=== PATIENT | female | born 1960 | race Hispanic/Latino ===

== ENCOUNTER 2016-10-18 06:36 | Day surgery (SDC) | payer OTHER ==
[~2016-10-18 06:36] MED LIST: NACL 0.9% 1000 ML 1,000 ML IV SCH; VANCOMYCIN/NS 1 GM/250 ML 1 GM/250 ML BAG IV NR
[2016-10-18] MEDS ORDERED: NACL 0.9% 500 ML 500 ML IV SCH (07:30)
[2016-10-18 07:35] LABS: Hematocrit 30.1 % (30.3-42.9); Hemoglobin 9.5 gm/dl (10.1-14.3); Mean Corpuscular HGB Conc 32 % (30-34); Mean Corpuscular Volume 79 fl (79-97); Platelet Count 514 K/mm3 (140-440); Red Blood Count 3.84 M/mm3 (3.65-5.03); Red Cell Distribution Width 19.2 % (13.2-15.2); White Blood Count 10.8 K/mm3 (4.5-11.0)
[2016-10-18 07:44] LABS: Mean Corpuscular Hemoglobin 25 pg (28-32)
[2016-10-18] MEDS ORDERED: PERCOCET 5/325 PO ONE (08:00)
[2016-10-18 08:01] LABS: Anion Gap 20 mmol/L; BUN/Creatinine Ratio 24.28; Blood Urea Nitrogen 17 mg/dL (7-17); Calcium 9.1 mg/dL (8.4-10.2); Carbon Dioxide 26 mmol/L (22-30); Glucose 101 mg/dL (65-100); Potassium 3.9 mmol/L (3.6-5.0); Sodium 138 mmol/L (137-145)
[2016-10-18] MEDS ORDERED: HEPARIN/NS 5000 UNIT/500ML(CATH LAB) 1,000 ML IR ONE (08:26)
[2016-10-18] MEDS ORDERED: HEPARIN 10,000 UNITS/10 ML ONE (08:27)
[2016-10-18] MEDS ORDERED: XYLOCAINE 1%/ EPI 1:100,000 INFILTRATI ONE (08:27)
[2016-10-18] MEDS ORDERED: SUBLIMAZE ONE (08:27)
[2016-10-18 08:32] LABS: Basophils % (Manual) 0 % (0.0-1.8); Blastocytes % (Manual) 0 %; Hypochromasia 1+
[2016-10-18 08:33] LABS: Diff Status Complete; Platelet Clumps Rare; Platelet Estimate Appears Increased
[2016-10-18] MEDS ORDERED: BENADRYL ONE (09:05)
[2016-10-18] MEDS: VERSED ONE ×2 (09:15→09:22)
[2016-10-18] MEDS: SUBLIMAZE ONE ×2 (09:17→09:40)
[2016-10-18] MEDS ORDERED: DILAUDID ONE ×2 (09:22→10:20)
[2016-10-18] MEDS: DILAUDID ONE ×4 (09:29→09:53)
--- NOTE | 2016-10-18 10:06 | Short Stay Summary ---
Short Stay Documentation Date of service: 10/18/16 Narrative H&P: please see H&P on chart - History Principal diagnosis: Critical limb ischemia, RLE H&P: obtained from office - Allergies and Medications Current Medications: Allergies carboplatin Allergy (Verified 03/30/13 11:51) Swelling cisplatin Allergy (Verified 03/30/13 11:51) Swelling Penicillins Allergy (Verified 01/28/13 12:31) Unknown Home Medications Medication Instructions Recorded Confirmed Last Taken Type Hydroxychloroquine [Plaquenil] 400 mg PO DAILY 11/17/13 10/18/16 10/18/16 05:30 History 400mg Lansoprazole (Nf) [Prevacid (Nf)] 30 mg PO DAILY 11/17/13 10/18/16 10/18/16 History 30mg Campbell-3 Fatty Acids/Fish Oil [Fish 1 tab PO DAILY 11/17/13 10/18/16 10/18/16 05: 30 History Oil] 1 tab Ubidecarenone [Coq-10] 120 mg PO DAILY 11/17/13 10/18/16 10/18/16 05:30 History 120mg Aspirin [Aspirin TAB] 325 mg PO QDAY #30 tablet 01/29/14 10/18/16 10/18/16 05: 30 Rx 325mg Clopidogrel [Plavix] 75 mg PO QDAY #30 tablet 01/29/14 10/18/16 10/18/16 05:30 Rx 75mg Lisinopril [Zestril TAB] 5 mg PO QDAY #30 tablet 01/29/14 10/18/16 10/18/16 05: 30 Rx 5mg Metoprolol [Lopressor TAB] 25 mg PO BID #60 tablet 01/29/14 10/18/16 10/18/16 05 :30 Rx 25mg oxyCODONE /ACETAMINOPHEN [Percocet 2 tab PO Q6H PRN 10/18/16 10/18/16 10/18/16 07:45 History 5/325 mg] Active Medications Vancomycin HCl (Vancomycin/Ns 1 Gm/250 Ml) 1 gm in 250 mls @ 166.667 mls/hr IV PREOP NR PRN Reason: Protocol Stop: 10/18/16 23:01 Last Admin: 10/18/16 08:30 Dose: 166.667 mls/hr Sodium Chloride (Nacl 0.9% 500 Ml) 500 mls @ 50 mls/hr IV DIRECT MO Last Admin: 10/18/16 08:15 Dose: 50 mls/hr - Physical exam General appearance: mild distress (right foot pain) Lungs: Normal air movement Extremities: pulses intact (left pedal pulses intact ; right pedal pulses nonpalpable) - Brief post op/procedure progress note Date of procedure: 10/18/16 Pre-op diagnosis: Critical limb ischemia, RLE Post-op diagnosis: same Procedure: 1. Ultrasound-guided axis of the right common femoral artery 2. Angiography of the right lower extremity 3. Selection of the abdominal aorta with angiography 4. Angioplasty of the right external iliac artery with a 5 mm angioplasty balloon 5. Angioplasty of the right common iliac artery with a 6 mm angioplasty balloon 6. Angioplasty of the right external iliac artery with a 6 mm x 100 mm LUTONIX drug coated balloon 7. Post intervention angiography of the right lower extremity Anesthesia: local (w/ conscious sedation) Surgeon: MALCOLM TORRES Estimated blood loss: minimal Condition: stable - Hospital course Hospital course: Tolerated procedure well. Keep supine x 5 hrs. - Disposition Condition at discharge: Stable Disposition: DISCHARGED TO HOME OR SELFCARE Short Stay Discharge Plan Activity: advance as tolerated Weight Bearing Status: Weight Bear as Tolerated (mild activity for the next week ) Diet: regular Wound: keep clean and dry Follow up with: ANA MARIA TRINH JR, MD [Primary Care Provider] - 7 Days
--- NOTE | 2016-10-18 10:07 | Operative Report ---
Operative Report Operative Report: EXAM: 1. Ultrasound-guided access of the right common femoral artery 2. Angiography of the right lower extremity 3. Selection of the abdominal aorta with angiography 4. Angioplasty of the right external iliac artery with a 5 mm angioplasty balloon 5. Angioplasty of the right common iliac artery with a 6 mm angioplasty balloon 6. Angioplasty of the right external iliac artery with a 6 mm x 100 mm LUTONIX drug coated balloon 7. Post intervention angiography of the right lower extremity DATE: 10/18/16 [employer]OUNDATION [employer]: MALCOLM TORRES MD INDICATION: Critical limb ischemia of the right lower extremity status post prior right common iliac stent-grafting with ABIs obtained in the office of less 0.5 with loss of the palpable pulse. MEDICATIONS: Please see nursing report for full details. DEVICES: 5 mm x 80 mm angioplasty balloon 6 mm x 40 mm angioplasty balloon 6 mm x 100 mm LUTONIX drug coated balloon (pass-through code required) CONTRAST: 60 mL of nonionic contrast PROCEDURE: The risks, benefits, and alternatives were discussed with the patient; written informed consent was obtained. The patient's going to prepped and draped in a sterile fashion. Ultrasound was used to evaluate the right common femoral artery. The right common internal artery was patent. Under direct ultrasound guidance, the right common femoral artery was accessed with a joint 1-gauge micropuncture needle. 0.018 inch wire was passed into the aorta. Needle was exchanged for transitional dilator. 0.035 inch Wright wire was then advanced the transitional dilator. Transitional dilator was exchanged for 5 Maltese sheath. Digital subtraction angiography was performed demonstrating an appropriate puncture, above the bifurcation below the inferior epigastric artery. Digital subtraction angiography demonstrated patency of the right common femoral artery, proximal profunda femoral artery, and profunda femoral artery. Digital subtraction angiography was repeated demonstrating patency of the distal right external iliac artery which was small in caliber, but otherwise patent. The right proximal external iliac artery was moderately narrowed. The right common iliac artery was stented with a covered stent which was patent along its midportion although there was some extrinsic compression along the midportion, but moderately narrowed at its proximal portion at the proximal edge of the stent. The patient was heparinized. Omni flush catheter was advanced over the wire and used to select the abdominal aorta. Digital subtraction angiography was performed in the abdominal aorta demonstrating the above-mentioned findings on the right side, and mild eccentric plaque at the distal left common iliac artery. The left external iliac artery was patent. 5 mm angioplasty balloon was advanced over the wire and used to perform angioplasty of the right external iliac artery. Digital subtraction angiography demonstrated mild residual narrowing. 6 mm angioplasty was advanced over the wire easily perform angioplasty at the right common iliac artery. Digital subtraction angiography demonstrated minimal residual narrowing. 6 mm drug coated balloon was advanced over the wire and used to perform prolonged angioplasty of the right external iliac artery and right common iliac artery. Digital subtraction angiography was performed demonstrating no residual narrowing of the right external iliac artery and common iliac artery. Digital subtraction angiography was then performed of the right lower extremity to ensure there was no distal embolization. The right common femoral artery, superficial femoral artery, profunda femoral artery, popliteal artery, tibioperoneal trunk, anterior tibial artery, posterior tibial artery, and peroneal arteries were patent to the ankle. Of note, all of the patient's vessels were diminutive in size especially the ones below the knee. After evaluating the images, determine intervention was complete. A CT was obtained, and the sheath was removed and pressure was held until hemostasis was achieved. Pressure dressing was applied. Sheath was removed due to the diminutive size of the patient's underlying vasculature. Her right common femoral artery was 4-5 mm in size. Patient tolerated procedure well. No immediate post procedure complication. FINDINGS: Please see procedure note above IMPRESSION: 1. Successful revascularization of the right common iliac artery with angioplasty. 2. Successful revascularization of the right external iliac artery with angioplasty.
[2016-10-18] MEDS: DILAUDID IV PRN ×2 (10:30→12:02)
[2016-10-18 13:58] VITALS: BP 110/44
--- NOTE | 2016-10-19 11:42 | Vascular Lab Report ---
MISCELLANEOUS VESSEL IDENTIFICATION: COMMENTS ON THE SCAN: The right common femoral artery was identified and under real-time ultrasound guidance was cannulated. IMPRESSION: Successful ultrasound guided arterial cannulation.
== END 2016-10-18 14:15 | disposition home or self-care (01) ==
LOC: OPU 06:36
PROVIDERS: ATTEND Radiology Diagnostic Radiology
DX: I70.213 Atherosclerosis of native arteries of extremities with intermittent claudication, bilateral legs (principal); M19.90 Unspecified osteoarthritis, unspecified site; K21.9 Gastro-esophageal reflux disease without esophagitis; I10 Essential (primary) hypertension; Z90.49 Acquired absence of other specified parts of digestive tract; Z98.890 Other specified postprocedural states; Z93.3 Colostomy status; Z95.5 Presence of coronary angioplasty implant and graft; Z85.43 Personal history of malignant neoplasm of ovary; Z88.8 Allergy status to other drugs, medicaments and biological substances; Z88.0 Allergy status to penicillin
CPT/HCPCS: 36415; 37220; 37222; 75625; 75710; 76937; 80048; 85007; 85025; 85347; C1725; C1769; C1887; C2623; J1170; J1200; J1644; J2250; J3010; J3370; J7040; Q9967

== ENCOUNTER 2016-11-12 08:07 | Outpatient (CLI) | payer OTHER ==
[2016-11-12 08:35] LABS: Blood Urea Nitrogen 14 mg/dL (7-17)
[2016-11-12] MEDS ORDERED: NACL ONE (08:37)
--- NOTE | 2016-11-14 09:30 | Cat Scan Report ---
CTA abdomen, pelvis, lower extremities: Patient with ovarian cancer and peripheral vascular disease. Contrasted transverse images are obtained from the left chest to the ischium with 2-D coronal and sagittal reformatted images and 3-D MIP image. There is a 6 mm nodular density with a thin linear connection to the diaphragm in the right lower lung. There is gross hydronephrosis of the left kidney and very proximal ureter. The ureter appears to be obstructed by periaortic masses. Large inhomogeneous masses are present in the pelvis surrounding and anterior to the rectum. There is anasarca. These findings are all new or worse when compared to her prior study in August 2015. There is a left lower quadrant ostomy with periosteal herniation essentially unchanged. The suprarenal aorta is unremarkable. Single renal arteries and SMA and celiac vessels are patent. There is scattered mural atheromatous plaque in the infrarenal aorta with almost total occlusion of both proximal ENMA's. The the ICAs and common femoral arteries are both patent. The femoral bifurcations are patent. Left lower extremity: The common femoral artery is patent as is the popliteal and common peroneal arteries. The trifurcation is patent and there is three-vessel runoff to the foot. Right lower extremity: The SFA, popliteal and common peroneal arteries are patent as is the trifurcation. 3 vessel runoff patent to the ankle and foot. Impressions: 1. Worsening metastatic disease consistent with ovarian cancer resulting in suspicious right lower lobe pulmonary nodule, occluded proximal left ureter and increasing pelvic masses/anasarca. 2. High-grade aortic bifurcation and bilateral proximal NEMA stenoses.
== END 2016-11-12 08:08 | disposition home or self-care (01) ==
LOC: CT 08:07
PROVIDERS: ATTEND Radiology Diagnostic Radiology
DX: I70.213 Atherosclerosis of native arteries of extremities with intermittent claudication, bilateral legs (principal); I71.4 Abdominal aortic aneurysm, without rupture; I73.00 Raynaud's syndrome without gangrene; I87.2 Venous insufficiency (chronic) (peripheral); I10 Essential (primary) hypertension; C56.9 Malignant neoplasm of unspecified ovary; I21.09 ST elevation (STEMI) myocardial infarction involving other coronary artery of anterior wall; Z87.891 Personal history of nicotine dependence
CPT/HCPCS: 36415; 75635; 82565; 84520; Q9967

== ENCOUNTER 2016-11-15 09:11 | Observation (INO) | payer OTHER, MEDICARE ==
[2016-11-15 11:40] LABS: Basophils % (Auto) 0.6 % (0.0-1.8); Eosinophils % (Auto) 1.7 % (0.0-4.3); Hematocrit 26.7 % (30.3-42.9); Hemoglobin 8.4 gm/dl (10.1-14.3); Mean Corpuscular HGB Conc 32 % (30-34); Mean Corpuscular Volume 78 fl (79-97); Platelet Count 421 K/mm3 (140-440); Red Blood Count 3.43 M/mm3 (3.65-5.03); Red Cell Distribution Width 17.3 % (13.2-15.2)
[2016-11-15 11:51] LABS: Mean Corpuscular Hemoglobin 25 pg (28-32)
[2016-11-15 11:58] LABS: Anion Gap 17 mmol/L; BUN/Creatinine Ratio 17.14; Blood Urea Nitrogen 12 mg/dL (7-17); Calcium 8.4 mg/dL (8.4-10.2); Carbon Dioxide 26 mmol/L (22-30); Chloride 96.6 mmol/L (98-107); Glucose 95 mg/dL (65-100); Potassium 3.6 mmol/L (3.6-5.0); Sodium 136 mmol/L (137-145)
[2016-11-15] MEDS ORDERED: DILAUDID IV PRN ×3 (14:34→21:30)
[2016-11-15] MEDS ORDERED: ZOFRAN IV PRN (14:34)
[2016-11-15] MEDS ORDERED: TYLENOL PO PRN (14:34)
[2016-11-15] MEDS ORDERED: PERCOCET 5/325 PO PRN ×2 (14:34→14:37)
[2016-11-15] MEDS ORDERED: DULCOLAX PR PRN (14:34)
--- NOTE | 2016-11-15 15:01 | Short Stay Summary ---
Short Stay Documentation Date of service: 11/15/16 - History H&P: obtained from office - Allergies and Medications Current Medications: Allergies carboplatin Allergy (Verified 03/30/13 11:51) Swelling cisplatin Allergy (Verified 03/30/13 11:51) Swelling Penicillins Allergy (Verified 01/28/13 12:31) Unknown Home Medications Medication Instructions Recorded Confirmed Last Taken Type Hydroxychloroquine [Plaquenil] 400 mg PO DAILY 11/17/13 11/15/16 11/14/16 History 400mg Lansoprazole (Nf) [Prevacid (Nf)] 30 mg PO DAILY 11/17/13 11/15/16 11/14/16 History 30mg Beauty-3 Fatty Acids/Fish Oil [Fish 1 tab PO DAILY 11/17/13 11/15/16 11/14/16 History Oil] 1 tab Ubidecarenone [Coq-10] 120 mg PO DAILY 11/17/13 11/15/16 11/14/16 History 1 tab Clopidogrel [Plavix] 75 mg PO QDAY #30 tablet 01/29/14 11/15/16 11/15/16 08:00 Rx 75mg Lisinopril [Zestril TAB] 5 mg PO QDAY #30 tablet 01/29/14 11/15/16 11/15/16 08: 00 Rx 5mg Metoprolol [Lopressor TAB] 25 mg PO BID #60 tablet 01/29/14 11/15/16 11/15/16 08 :00 Rx 25mg oxyCODONE /ACETAMINOPHEN [Percocet 2 tab PO Q6H PRN 10/18/16 11/15/16 11/15/16 08:00 History 5/325 mg] 1 tab Aspirin EC [Aspirin Enteric Coated 81 mg PO DAILY 11/15/16 11/15/16 11/15/16 08: 00 History TAB] 81mg Active Medications Acetaminophen (Tylenol) 650 mg PO Q4H PRN PRN Reason: Pain MILD(1-3)/Fever >100.5/GONZALES Aspirin (Halfprin Ec) 81 mg PO DAILY MO Bisacodyl (Dulcolax) 10 mg AK QDAY PRN PRN Reason: Constipation unrelieved by MOM Clopidogrel Bisulfate (Plavix) 75 mg PO QDAY MO Docusate Sodium (Colace) 100 mg PO BID MO Fish Oil (Fish Oil) mg PO DAILY [facility] Hydromorphone HCl (Dilaudid) 0.5 mg IV Q3H PRN PRN Reason: Pain , Severe (7-10) Hydromorphone HCl (Dilaudid) 0.25 mg IV Q3H PRN PRN Reason: Pain, Moderate (4-6) Hydroxychloroquine Sulfate (Plaquenil) 400 mg PO DAILY [facility] Sodium Chloride (Nacl 0.9% 1000 Ml) 1,000 mls @ 42 mls/hr IV DIRECT MO Vancomycin HCl (Vancomycin/Ns 1 Gm/250 Ml) 1 gm in 250 mls @ 166.667 mls/hr IV PREOP NR PRN Reason: Protocol Stop: 11/15/16 23:01 Lisinopril (Zestril) 5 mg PO QDAY [facility] Metoprolol Tartrate (Lopressor) 25 mg PO BID [facility] Miscellaneous Medication (Lansoprazole (Nf)) 30 mg PO DAILY [facility] Miscellaneous Medication (Ubidecarenone [Coq-10]) 120 mg PO DAILY [facility] Ondansetron HCl (Zofran) 4 mg IV Q8H PRN PRN Reason: Nausea And Vomiting Oxycodone/Acetaminophen (Percocet 5/325) 1 tab PO Q6H PRN PRN Reason: Pain, Moderate (4-6) Oxycodone/Acetaminophen (Percocet 5/325) 2 tab PO Q6H PRN PRN Reason: Moder Pain unrelieved by [place] Senna (Senokot) 8.6 mg PO Q12HR [facility] - Physical exam General appearance: mild distress (chronic back pain) HEENT: EOMI Lungs: Normal air movement Extremities: normal temperature, normal color, abnormal (nonpalpable pedal pulses bilaterally) - Brief post op/procedure progress note Date of procedure: 11/16/16 Pre-op diagnosis: Threatened right lower extremity and left lower extremity Post-op diagnosis: same Procedure: Revasc bilateral lower extremities Findings: palpable pedal pulses at the conclusion of the case Surgeon: MALCOLM TORRES Estimated blood loss: minimal Condition: stable - Hospital course Hospital course: Admitted overnight for pain control for chronic lower pelvic pain. Nephrostomy bag was leaking which will be replaced. Doing well postoperatively from a vascular point of view. Walked without issue. Palpable pedal pulses. No hematoma or pseudoaneurysm at the groins. Will be discharged. - Disposition Condition at discharge: Stable Disposition: DC-01 TO HOME OR SELFCARE - Discharge Diagnoses (1) Metastatic adenocarcinoma of ovary Status: Acute Qualifiers: Laterality: L (2) Ischemic rest pain of lower extremity Status: Acute Short Stay Discharge Plan Activity: advance as tolerated Weight Bearing Status: Weight Bear as Tolerated Diet: advance as tolerated Wound: keep clean and dry Follow up with: ANA MARIA TRINH JR, MD [Primary Care Provider] - 7 Days
--- NOTE | 2016-11-15 15:31 | Anesthesia Day of Surgery ---
Anesthesia Day of Surgery - Day of Surgery Patient Examined: Yes Patient H&P Reviewed: Yes Patient is NPO: Yes Beta Blockers: Yes
--- NOTE | 2016-11-15 15:35 | Anesthesia Consultation ---
Anesthesia Consult and Med Hx Date of service: 11/15/16 - Airway Anesthetic Teeth Evaluation: Good ROM Head & Neck: Adequate Mental/Hyoid Distance: Adequate Mallampati Class: Class II Intubation Access Assessment: Probably Good - Pulmonary Exam CTA: Yes - Cardiac Exam Cardiac Exam: RRR - Pre-Operative Health Status ASA Pre-Surgery Classification: ASA4 Proposed Anesthetic Plan: MAC - Pulmonary Hx Smoking: Yes (quit 7 yrs ago) Hx Asthma: No COPD: No Hx Pneumonia: Yes (20 yrs ago) - Cardiovascular System Hx Hypertension: Yes Hx Coronary Artery Disease: Yes Hx Heart Attack/AMI: Yes (2011) Hx Percutaneous Transluminal Coronary Angioplasty (PTCA): Yes (stents x 5) Hx Valvular Heart Disease: Yes (trace MR on Echo 12/26/12) Hx Peripheral Vascular Disease: Yes (Right Leg stents) - Central Nervous System Hx Psychiatric Problems: No - Gastrointestinal Hx Ulcer: No Hx Gastroesophageal Reflux Disease: Yes (mild) - Endocrine Hx Renal Disease: Yes (has nephrostomy tube) Hx End Stage Renal Disease: No - Hematic Hx Anemia: No - Other Systems Hx Cancer: Yes (Ovarian, currently on Hospice care) Hx Obesity: No - Additional Comments Anesthesia Medical History Comments: Colectomy, has ostomy bag, port in left chest
[2016-11-15] MEDS ORDERED: DIPRIVAN 10 MG/ML IV ONE ×2 (15:46)
[2016-11-15] MEDS ORDERED: DILAUDID ONE ×6 (15:47→22:43)
[2016-11-15] MEDS ORDERED: VERSED ONE ×2 (15:47→18:46)
[2016-11-15] MEDS ORDERED: NACL 0.9% 1000 ML 1,000 ML ONE ×3 (16:46→21:35)
[2016-11-15] MEDS ORDERED: HEPARIN/NS 5000 UNIT/500ML(CATH LAB) 1,000 ML IR ONE (17:05)
[2016-11-15] MEDS ORDERED: XYLOCAINE 2% INFILTRATI ONE ×2 (17:06→20:01)
[2016-11-15] MEDS ORDERED: VANCOMYCIN/NS 1 GM/250 ML 1 GM/250 ML BAG IV ONE (17:06)
[2016-11-15] MEDS ORDERED: DIPRIVAN 10 MG/ML 0 MG/0 ML BOTTLE IV ONE (17:22)
[2016-11-15] MEDS ORDERED: NORMODYNE IV ONE (18:00)
[2016-11-15] MEDS ORDERED: DIPRIVAN 10 MG/ML 1,000 MG/100 ML BOTTLE IV ONE (18:16)
[2016-11-15] MEDS ORDERED: DILAUDID IV ONE (19:00)
[2016-11-15] MEDS ORDERED: HEPARIN/NS 5000 UNIT/500ML(CATH LAB) 500 ML IR ONE (20:41)
--- NOTE | 2016-11-15 21:40 | Post Operative Note ---
Date of procedure: 11/15/16 Pre-op diagnosis: Atherosclerotic disease with rest pain Post-op diagnosis: same Findings: amish of palpable pedal pulses Procedure: 1. Ultrasound guided access of the right common femoral artery 2. Ultrasound guided access of the left common femoral artery 3. Angiography of the right lower extremity 4. Angiography of the left lower extremity 5. Selection of the abdominal aorta with angiography 6. Placement of a right common iliac artery VIABAHN stent 7 mm x 10 cm with post dilatation with a 6 mm angioplasty balloon 7. Placement of a left common iliac artery VIABAHN stent 7 mm x 5 cm with post dilatation with a 6 mm angioplasty balloon 8. Placement of a left common iliac artery VIABAHN stent 7 mm x 5 cm with post dilatation with a 6 mm angioplasty balloon 9. Placement of a right external iliac artery VIBAHN stent 7 mm x 7.5 cm with post dilatation with a 6 mm angioplasty balloon 10. Post stenting angiography of the bilateral lower extremities Anesthesia: MAC Surgeon: MALCOLM TORRES Estimated blood loss: minimal Condition: stable Disposition: floor
--- NOTE | 2016-11-15 21:50 | Operative Report ---
Operative Report Operative Report: EXAM: 1. Ultrasound guided access of the right common femoral artery 2. Ultrasound guided access of the left common femoral artery 3. Angiography of the right lower extremity 4. Angiography of the left lower extremity 5. Selection of the abdominal aorta with angiography 6. Placement of a right common iliac artery VIABAHN stent 7 mm x 10 cm with post dilatation with a 6 mm angioplasty balloon 7. Placement of a left common iliac artery VIABAHN stent 7 mm x 5 cm with post dilatation with a 6 mm angioplasty balloon 8. Placement of a left common iliac artery VIABAHN stent 7 mm x 5 cm with post dilatation with a 6 mm angioplasty balloon 9. Placement of a right external iliac artery VIBAHN stent 7 mm x 7.5 cm with post dilatation with a 6 mm angioplasty balloon 10. Post stenting angiography of the bilateral lower extremities DATE: 11/16/16 ADMINISTRATION CLERK: MALCOLM TORRES MD INDICATION: Metastatic ovarian cancer with desmoplastic reaction of the retroperitoneum and the iliac arteries resulting in a threatened right lower extremity and bilateral nonpalpable pedal pulses. MEDICATIONS: Please see nursing report for full details. DEVICES: 7 mm x 5 cm Viabahn stent graft (2) 7 mm x 10 cm Viabahn stent graft 7 mm x 7.5 mm Viabahn stent graft CONTRAST: 200 mL of nonionic contrast PROCEDURE: The risks, benefits, and alternatives were discussed with the patient; written informed consent was obtained. Anesthesia was used to provide sedation for the patient for comfort. Both groins were prepped and draped in a sterile fashion. Ultrasound was used to identify the right common femoral artery which was patent. Under direct ultrasound guidance, the right common femoral artery was accessed with a 21-gauge micropuncture needle. 0.018 inch wire was passed through the needle. Needle was exchanged for transitional dilator. Wire was exchanged for 0.035 inch Wright wire. Transitional dilator was exchanged for 6 [place]amese sheath. Ultrasound was used to identify the left common femoral artery which was patent. Under direct ultrasound guidance, the left common femoral artery was accessed with a 21-gauge micropuncture needle. 0.018 inch wire was passed through the needle. Needle was exchanged for transitional dilator. Wire was exchanged for 0.035 inch Wright wire. Transitional dilator was exchanged for 6 [place]amese sheath. The patient was heparinized. Digital subtraction angiography was performed to the right sheath demonstrating an appropriate puncture, above the bifurcation below the inferior epigastric artery. The right common femoral artery had a 50% narrowing within it. The profunda femoral artery and proximal superficial femoral artery were patent. Digital subtraction angiography was performed to the left sheath demonstrating appropriate puncture, above the bifurcation below the inferior epigastric artery. The left external iliac artery, common femoral artery, proximal superficial femoral artery, and profunda femoral artery were patent. Both sheath were then upsized to [address] angiogram was reviewed prior to the procedure which demonstrate that the tumor was resulting in flattening of the iliac arteries with a misleading angiographic image, as the angiographic image does not account for the AP dimension. Diagnostic imaging was performed with and Omni Flush catheter in the infrarenal abdominal aorta. Diagnostic imaging was also obtained through both sheaths. Digital subtraction angiography demonstrated the infrarenal abdominal aorta was patent with a severe 90% narrowing at the ostium of the right common iliac artery patency of the right common iliac artery stents, and severe narrowing of the right external iliac artery in the AP direction better seen on the CT scan. The left common iliac artery was 90% narrowed with severe narrowing in the AP direction better seen on the CT scan. The left internal iliac artery was patent. The left external iliac artery was patent. Both wires were exchanged for V 18 wires. Viabahn stent grafts were used to prevent tumor compression of a balloon expandable graft. 7 mm x 10 cm Viabahn stent graft was deployed in the right common iliac artery and a 7 mm x 5 cm Viabahn stent graft was deployed in the left common iliac artery. These were post dilated with 6 mm angioplasty balloons. Digital subtraction angiography was performed demonstrating an eccentric plaque occupying 40% of the lumen in the left common iliac artery below the stent, and a 30% plaque in the right external iliac artery below the stent. These narrowings will reduce the patency of the stent graft. Therefore decided to treat them with stent graft extension. 7 mm x 5 cm Viabahn stent graft was deployed in the left common iliac artery. This was post dilated with a 6 mm balloon. Digital subtraction angiography demonstrated no residual narrowing of the left common iliac artery, with patency of the left external iliac and internal iliac arteries. 7 mm x 7.5 cm Viabahn stent graft was deployed in the right external iliac artery. This was post dilated with 6 mm balloon. Digital subtraction angiography demonstrated no residual narrowing in the right common iliac artery or right external iliac artery. Digital subtraction angiography was then performed demonstrating runoff of the right lower extremity and left lower extremity which demonstrates patency of the bilateral superficial femoral arteries, profundofemoral arteries, popliteal arteries, tibioperoneal trunk, anterior tibial arteries, posterior tibial arteries, and peroneal arteries. There is excellent outflow. ACT was obtained. Sheaths were then removed and pressure was held until hemostasis was achieved. The patient had palpable pedal pulses at the conclusion of the procedure. FINDINGS: Please see procedure note above. IMPRESSION: 1. Successful stenting of the right common iliac artery. 2. Successful stenting of the left common iliac artery. 3. Successful stenting of the right external iliac artery. 4. Successful angiography of the aorta and bilateral lower extremities.
[2016-11-15] MEDS ORDERED: SENOKOT PO SCH (22:00)
[2016-11-15] MEDS ORDERED: COLACE PO SCH (22:00)
[2016-11-15] MEDS ORDERED: LOPRESSOR PO SCH (22:00)
--- NOTE | 2016-11-15 22:36 | Post Anesthesia Evaluation ---
- Post Anesthesia Evaluation Patient Participated: Yes Airway Patent: Yes Stable Respiratory Function: Yes Temp > 96.8F: Yes Pain Manageable: Yes Adequeate Hydration: Yes Anesthesia Complications: No Block Receding Appropriately: Not Applicable
[2016-11-15] MEDS: DILAUDID IV PRN ×2 (22:40→22:50)
[2016-11-15] MEDS ORDERED: MORPHINE ONE ×3 (22:52→23:16)
[2016-11-15] MEDS: MORPHINE IV PRN ×3 (22:57→23:16)
[2016-11-16] MEDS: DILAUDID IV PRN ×5 (00:28→09:07)
[2016-11-16] MEDS ORDERED: XANAX PO PRN (05:32)
--- NOTE | 2016-11-16 07:25 | Admit Criteria Form ---
Admission Criteria Documentation: AMBULATORY SURGERY EXCEPTION CRITERIA Ambulatory Surgery Exception Criteria ( Place 'X' for any and all applicable criteria): Surgery or procedure performed on ambulatory basis may require inpatient stay for[A] ANY ONE of the following(1)(2)(3)(4)(5)(6)(7)(8)(9): [X] I. A preoperative situation, condition, or finding that warrants inpatient stay as indicated by ANY ONE of the following: [] a) Inpatient care needed because of severity of a disease or condition rather than the surgery (eg, severe cardiac or respiratory disease, severe infection) (15) (16 ) (17) (18) [] b) Emergent procedure (eg, angioplasty for acute ischemia)(19) [] c) Complex surgical approach or situation as indicated by ANY ONE of the following(3): [] i) Open approach needed instead of usual endoscopic, transcatheter, or other less invasive procedure [] ii) Difficult approach because of previous operation [] iii) Airway monitoring required after open neck procedures(20)(21) [] iv) Large mass requiring unusually extensive dissection [] v) Additional complicating feature requiring inpatient care (eg, drain management)(22(23): [X] d) Major surgery in a pt with high anesthetic risk as indicated by ANY ONE of the following (2)(3)(5)(7)(8): [X] i) ASA risk class III or higher (severe systemic disease impairing function) [D] [] ii) Advanced age (eg, older than 85 years)(14)(24) [] iii) Symptomatic heart failure(25) [] iv) Symptomatic asthma or COPD(8)(21) [] v) Morbid obesity with hemodynamic or respiratory problems(20)( 21)(26)(27) [] vi) Obstructive sleep apnea(20)(21) [] vii) Former premature infants who are younger than 60 weeks [] viii) High risk for severe postoperative abnormalities (eg, severe postoperative hypocalcemia after parathyroidectomy for severe hyperparathyroidism)(27)( 28) [] ix) Unstable angina(25) [] e) Drug-related risk requiring inpatient stay as indicated by ANY ONE of the following(5)(10)(14)(32)(33) [] i) Procedure requires discontinuing drugs or other therapy (eg , antiarrhythmic medication, antiseizure medication), which necessitates inpatient observation or treatment.(18)(31) [] ii) Major surgery and high risk drug use as indicated by ANY ONE of the following: [] 1) Active abuse of cocaine or similar drug [] 2) Monoamine oxidase inhibitor use [] 3) Other drug identified as posing risk [] f) Inadequate outpatient care situation as indicated by ANY ONE of the following(5)(10)(14)(32)(33) [] i) Patient lives remote from medical facility and procedure has urgent complication potential, and temporary nearby residence cannot be arranged [] ii) Patient will have postprocedure incapacitation and inadequate assistance at home, or alternative level of care cannot be arranged. [] iii) Patient will have long general anesthesia or procedure side effect resolution time, and competent person to stay with patient on first postoperative night at home or alternative level of care cannot be arranged. []iv) Other inadequate outpatient situation that cannot be handled by other means [] II. A perioperative event, condition, or finding that warrants inpatient stay as indicated by ANY ONE of the following (1)(2)(3): [] a) Inadequate physiologic recovery: cardiovascular, respiratory, or hemodynamic status not normal or near preoperative baseline(18) [] b) Hemodynamic instability [] c) Patient not alert with near normal or baseline mental status [] d) Temperature not normal or as expected and not appropriate for outpatient treatment of condition [] e) Ambulatory or appropriate activity level status not yet achieved post procedure [E](34)(35)(36) [] f) Operative site not appropriate (eg, unexpected or excessive drainage or bleeding) [] g) Postoperative effects not resolved or adequately managed (eg, significant pain or vomiting not appropriate for outpatient or next level of care)(10)(12) [] h) Complicating features requiring inpatient care as indicated by ANY ONE of the following(37): [] i) Severe complications of procedure (eg, bowel injury, airway compromise, vascular injury,severe hemorrhage) [] ii) Extensive (eg, dissection far beyond usual scope of procedure ) or prolonged (eg, 120 minutes beyond usual) surgery needed requiring inpatient postoperative care [] iii) Conversion to an open or complex procedure that requires inpatient care (eg, open vs laparoscopic cholecystectomy, abdominal vs vaginal hysterectomy)(38) [] iv) Comorbid condition or test result identified during or post procedure that requires inpatient care (7) [] v) Malignant hyperthermia(30) [] vi) Other complicating feature requiring inpatient care(22)(23) Inpatient stay may be needed until ALL of the following are present (1)(2)(3)(4) (5)(6)(10)(14)(33)(40): []a) Physiologic recovery: cardiovascular, respiratory, and hemodynamic status normal or near preoperative baseline []b) Hemodynamic stability []c) Patient alert, with near normal or baseline mental status []d) Temperature appropriate: patient afebrile or temperature appropriate for outpt treatment of condition []e) Activity level appropriate: ambulatory or appropriate activity level post procedure []f) Operative site appropriate as indicated by ALL of the following: []i) Site dry or with expected drainage []ii) Any blood noted is as expected for procedure. []g) Postoperative effects resolved or managed as indicated by ALL of the following: []i) Pain management appropriate for outpatient (or next level of) care(10) []ii) Minimal nausea and vomiting: if present, successfully treated with oral medication(12) []iii) Headache, dizziness, or drowsiness (if present) are mild. []h) Voiding status acceptable as indicated by ANY ONE of the following: []i) Voiding spontaneously []ii) No voiding but instructions given for follow-up in 6 to 8 hours []iii) Urinary catheter in place, and instructions given for follow-up []i) Complicating features requiring inpatient care manageable at a lower level of care(37) []j) Comorbid conditions manageable at a lower level of care(37) The original [employer] content created by [employer] has been revised. The portions of the content which have been revised are identified through the use of italic text or in bold, and [facility] [employer] has neither reviewed nor approved the modified material. All other unmodified content is copyright [employer]. Please see references footnoted in the original [employer] edition 2016 Admission Criteria Met: Yes
[2016-11-16] MEDS ORDERED: LANSOPRAZOLE 30 MG PO SCH (10:00)
[2016-11-16] MEDS ORDERED: ZESTRIL PO SCH (10:00)
[2016-11-16] MEDS ORDERED: PLAQUENIL PO SCH (10:00)
[2016-11-16] MEDS ORDERED: FISH OIL PO SCH (10:00)
[2016-11-16] MEDS ORDERED: HALFPRIN EC PO SCH (10:00)
[2016-11-16] MEDS ORDERED: PROTONIX PO SCH (10:00)
[2016-11-16] MEDS ORDERED: PLAVIX PO SCH (10:00)
[2016-11-16] MEDS ORDERED: UBIDECARENONE 120 MG PO SCH (10:00)
[2016-11-16 10:47] VITALS: BP 137/62
== END 2016-11-16 10:45 | disposition home or self-care (01) ==
LOC: OPU 09:11 → CATH 09:11 → INTOOBSV 14:31 → 3A 14:31 → UNDODISOB 11-16 10:45
PROVIDERS: ADMIT Radiology Diagnostic Radiology; ATTEND Radiology Diagnostic Radiology
DX: I70.213 Atherosclerosis of native arteries of extremities with intermittent claudication, bilateral legs (principal); C79.60 Secondary malignant neoplasm of unspecified ovary; I73.00 Raynaud's syndrome without gangrene; I87.2 Venous insufficiency (chronic) (peripheral); K21.9 Gastro-esophageal reflux disease without esophagitis; I10 Essential (primary) hypertension; Z90.710 Acquired absence of both cervix and uterus; Z98.890 Other specified postprocedural states
CPT/HCPCS: 36415; 37221; 37223; 75625; 75716; 80048; 85025; 85347; 96374; 96375; 96376; C1725; C1769; C1887; C1894; G0378; J1170; J1644; J2250; J2270; J2704; J3370; J7030; Q9967